=== PATIENT | female | born 1975 | race Caucasian/White ===

== ENCOUNTER 2020-09-11 21:55 | Emergency (ER) | payer OTHER ==
[~2020-09-11 21:55] MED LIST: ZITHROMAX Z PA250 MG PO; ZYRTEC ALLERGY10 MG PO
[2020-09-11] MEDS ORDERED: GLUCOPHAGE1000 MG PO (22:07)
[2020-09-11] MEDS ORDERED: LOMAIRA8 MG PO (22:07)
[2020-09-11] MEDS ORDERED: MOBIC7.5 MG PO (22:39)
[2020-09-11] MEDS ORDERED: SYNTHROID25 MCG PO (22:40)
[2020-09-11] MEDS ORDERED: ZOLOFT25 M1 PO (22:40)
[2020-09-11 23:50] VITALS: BP 147/91
== END 2020-09-11 23:50 | disposition home or self-care (01) ==
LOC: ED 21:55
DX: S06.0X0A Concussion without loss of consciousness, initial encounter (principal); S00.03XA Contusion of scalp, initial encounter; E11.9 Type 2 diabetes mellitus without complications; E03.9 Hypothyroidism, unspecified; F17.200 Nicotine dependence, unspecified, uncomplicated; Z90.710 Acquired absence of both cervix and uterus; Z79.84 Long term (current) use of oral hypoglycemic drugs; Z79.890 Hormone replacement therapy; W01.198A Fall on same level from slipping, tripping and stumbling with subsequent striking against other object, initial encounter; Y92.512 Supermarket, store or market as the place of occurrence of the external cause; Y99.0 Civilian activity done for income or pay

== ENCOUNTER 2024-03-31 15:09 | Emergency (ER) | payer SELFPAY ==
[~2024-03-31] VITALS: Ht 167.6 cm; Wt 113.2 kg
[~2024-03-31 15:09] MED LIST changes: +GLUCOPHAGE1000 MG PO; +LOMAIRA8 MG PO; +MOBIC7.5 MG PO; +SYNTHROID25 MCG PO; +ZOLOFT25 M1 PO
[2024-03-31] MEDS ORDERED: OZEMPIC1 MG/0.71 SQ (15:42)
[2024-03-31] MEDS ORDERED: LEVOTHYROXINE0.2 MG PO (15:42)
[2024-03-31] MEDS ORDERED: NS 500 ML IV SCH (16:15)
[2024-03-31] MEDS ORDERED: Ondansetron 4 MG/2 ML VIAL IV ONE (16:15)
[2024-03-31 16:35] LABS: HEMATOCRIT 49.3 % (37.0-47.0); HEMOGLOBIN 16.3 g/dL (12.5-16.0); MEAN CELL VOLUME 83 fl (78-100); MEAN CORPUSCULAR HEMOGLOBIN 28 pg (27-31); MEAN CORPUSCULAR HGB CONC 33 g/dL (33-37); MEAN PLATELET VOLUME 10.3 fl (7.4-10.4); PLATELET COUNT 168 K/mm3 (130-400); RED BLOOD COUNT 5.92 M/mm3 (4.10-5.30)
[2024-03-31 16:41] LABS: ALBUMIN 4.2 g/dL (3.5-5.0)
[2024-03-31 16:43] LABS: CALCIUM 9.7 mg/dL (8.3-10.5)
[2024-03-31 16:44] LABS: TOTAL PROTEIN 7.1 g/dL (6.4-8.3)
[2024-03-31 16:46] LABS: TOTAL BILIRUBIN 0.8 mg/dL (0.2-1.2)
[2024-03-31] MEDS ORDERED: ZOFRAN ODT4 MG PO (17:01)
[2024-03-31 17:15] LABS: NEUTROPHILS 91 % (42-75)
[2024-03-31] MEDS ORDERED: Home Ondansetron ODT 4 MG #2 ODT/PACK PO ONE (17:15)
[2024-03-31 17:16] LABS: BAND 1 % (0-10); LYMPHOCYTE 5 % (20-51); MONOCYTE 1 % (3-10)
[2024-03-31 18:30] VITALS: BP 115/79
== END 2024-03-31 18:58 | disposition home or self-care (01) ==
LOC: ED 15:09
PROVIDERS: Physician Assistant
DX: A08.4 Viral intestinal infection, unspecified (principal)
CPT/HCPCS: J2405; J7040

== ENCOUNTER 2024-09-22 19:15 | Emergency (ER) | payer SELFPAY ==
[~2024-09-22] VITALS: Ht 167.6 cm; Wt 97.7 kg
[~2024-09-22 19:15] MED LIST changes: +LEVOTHYROXINE0.2 MG PO; +OZEMPIC1 MG/0.71 SQ; +ZOFRAN ODT4 MG PO
[2024-09-22] MEDS ORDERED: HYDROCHLOROTH12.5 M2 PO (19:23)
[2024-09-22 19:36] LABS: BASO # 0.02 K/mm3 (0.02-0.10); EOS % 3.2 % (1.0-5.0); HEMATOCRIT 46.6 % (37.0-47.0); LYMPH# 1.77 K/mm3 (1.50-4.00); MEAN CELL VOLUME 88 fl (78-100); MEAN CORPUSCULAR HEMOGLOBIN 28 pg (27-31); MEAN CORPUSCULAR HGB CONC 32 g/dL (33-37); MONO # 0.36 K/mm3 (0.20-0.80); NEU # 3.94 K/mm3 (1.40-6.50); PLATELET COUNT 209 K/mm3 (130-400); RED BLOOD COUNT 5.31 M/mm3 (4.10-5.30); RED CELL DISTRIBUTION WIDTH 13.3 % (11.5-14.5); WHITE BLOOD COUNT 6.3 K/mm3 (4.8-10.8)
[2024-09-22 19:45] LABS: ALBUMIN 4.2 g/dL (3.5-5.0)
[2024-09-22 19:48] LABS: TOTAL PROTEIN 7.4 g/dL (6.4-8.3)
[2024-09-22 19:50] LABS: TOTAL BILIRUBIN 0.3 mg/dL (0.2-1.2)
[2024-09-22 20:00] LABS: D-DIMER 0.22 mg/L FEU (0.15-0.50)
[2024-09-22 21:20] VITALS: BP 131/87
== END 2024-09-22 21:20 | disposition short-term general hospital (02) ==
LOC: ED 19:15
PROVIDERS: Family Medicine
DX: R07.89 Other chest pain (principal); R79.89 Other specified abnormal findings of blood chemistry
CPT/HCPCS: J1650